=== PATIENT | male | born 1945 | race Caucasian/White ===

== ENCOUNTER 2018-11-13 08:22 | Day surgery (SDC) | payer MEDICARE ==
[2018-11-12 08:40] VITALS: BMI 39.4
[~2018-11-13 08:22] MED LIST: LACTATED RINGERS 1,000 ML IV SCH
[2018-11-13 08:50] VITALS: TEMP 98.1
[2018-11-13 08:54] LABS: Glucose,Whole Blood 129 mg/dL (75-99)
[2018-11-13] MEDS ORDERED: PROPOFOL 10 MG/ML 20 ML VIAL IV ONE (09:10)
[2018-11-13] MEDS ORDERED: LIDOCAINE 1% INJ 10MG/ML (20 ML MDV) ONE (09:10)
--- NOTE | 2018-11-13 09:43 | P.PCN ---
Date of Procedure: 11/13/18 Description of Procedure: BRIEF HISTORY: Pleasant 73-year-old female who presents for outpatient screening colonoscopy. The patient denies any change in bowel habits, abdominal pain, blood per rectum. Has had colonoscopies in the past with the last occurring 5 years ago. Denies any family history of colon cancer. PROCEDURE PERFORMED: Colonoscopy with polypectomy. PREOPERATIVE DIAGNOSIS: Screening for malignant neoplasm of the colon, last colonoscopy 5 years ago. ESTIMATED BLOOD LOSS: Minimal. IV sedation per Anesthesia. PROCEDURE: After informed consent was obtained, the patient, was brought into the endoscopy unit. IV sedation was administered by Anesthesia under continuous monitoring. Digital rectal examination was normal. Initially the Olympus CF-190 flexible video colonoscope was then inserted in the rectum, gradually advanced into the cecum without any difficulty. Careful examination was performed as the scope was gradually being withdrawn. Ileocecal valve and the appendiceal orifice were visualized and appeared normal. Prep was excellent. Mucosa of the cecum, ascending colon, transverse colon, descending colon, sigmoid colon, and rectum appeared normal. Mild scattered diverticulosis throughout the colon. Mild internal hemorrhoids. 5 mm sessile transverse colon polyp removed with cold snare polypectomy. Retroflexion was performed in the rectum and no lesions were seen. The patient tolerated the procedure well. IMPRESSION: Transverse colon polyp removed with cold snare. Pandiverticulosis. Mild internal hemorrhoids. RECOMMENDATIONS: Findings of this examination were discussed with the patient and his . Okay to resume high-fiber diet. Okay to resume medications. Recommend repeat colonoscopy in 5 years pending pathology from polypectomy.
[2018-11-13 09:52] VITALS: RESP 16
[2018-11-13 09:53] LABS: Glucose,Whole Blood 132 mg/dL (75-99)
[2018-11-13 10:10] VITALS: BP 151/75; PULSE 62
== END 2018-11-13 10:37 | disposition home or self-care (01) ==
LOC: ORWHC2ENDO 08:22
PROVIDERS: ATTEND Internal Medicine
DX: Z12.11 Encounter for screening for malignant neoplasm of colon (principal); D12.3 Benign neoplasm of transverse colon; K57.30 Diverticulosis of large intestine without perforation or abscess without bleeding; K64.8 Other hemorrhoids; I10 Essential (primary) hypertension; E78.5 Hyperlipidemia, unspecified; E11.9 Type 2 diabetes mellitus without complications; Z85.46 Personal history of malignant neoplasm of prostate; Z79.84 Long term (current) use of oral hypoglycemic drugs; Z79.82 Long term (current) use of aspirin; Z79.899 Other long term (current) drug therapy
CPT/HCPCS: 88305; 45385; J2001; J2704

== ENCOUNTER → 2019-11-02 | Outpatient (CLI) | payer MEDICARE ==
[~2019-11-02] MED LIST changes: +DOBUTamine DRIP for NUC MED 500 MG in DEXTROSE/WATER 1 250ML.BAG IV ONE; -LACTATED RINGERS 1,000 ML IV SCH
--- NOTE | 2019-11-02 13:39 | ECHOS ---
STRESS ECHOCARDIOGRAM LUMASON: Vial INDICATIONS: Syncope. MEDICATIONS: Metformin, Bisoprolol, Pravastatin, Candesartan, Novalog BASELINE HEART RATE: 74 BASELINE BLOOD PRESSURE: 154/82 MAXIMUM HEART RATE: 129 MAXIMUM BLOOD PRESSURE: 182/45 85% MPHR: 125 100% MPHR: 147 METS: MAXIMUM STAGE REACHED: TOTAL EXERCISE TIME: CLINICAL INFORMATION: Baseline EKG shows sinus rhythm, normal axis, normal intervals. Patient was given intravenous dobutamine over a period of 6 minutes as per protocol, did not have chest pain or diagnostic ST-segment depression. Baseline echo shows normal left ventricular size, wall motion, and systolic function. Post dobutamine infusion, there is normal hyperdynamic response of all segments of myocardium noted. Lumason was used in improve endocardial visualization. CONCLUSIONS: 1. Negative stress test by EKG criteria. 2. Negative contrast dobutamine echo. MMSEPIDEH / IJN: [id number] /
== END | disposition home or self-care (01) ==
LOC: RADNMMAIN 09:04
PROVIDERS: ATTEND Internal Medicine
DX: R55 Syncope and collapse (principal)
CPT/HCPCS: C8930; J1250; Q9950; 93351

== ENCOUNTER → 2019-11-23 | Outpatient (CLI) | payer MEDICARE | END | disposition home or self-care (01) | LOC: LABPAT 14:34 | PROVIDERS: ATTEND Orthopaedic Surgery | DX: Z01.812 Encounter for preprocedural laboratory examination (principal) | CPT/HCPCS: 87070 ==

== ENCOUNTER → 2019-12-04 | Outpatient (CLI) | payer MEDICARE ==
[2019-12-04 15:11] LABS: Basophils % (A) 1 %; Eosinophils # (A) 0.1 k/uL (0-0.7); Eosinophils % (A) 1 %; HCT 50.4 % (39.0-53.0); HGB 16.7 gm/dL (13.0-17.5); Lymphocytes # (A) 0.9 k/uL (1.0-4.8); Lymphocytes % (A) 10 %; MCH 30.7 pg (25.0-35.0); MCHC 33.1 g/dL (31.0-37.0); MCV 92.8 fL (80.0-100.0); Mean Platelet Volume 8.7; Monocytes # (A) 0.5 k/uL (0-1.0); Monocytes % (A) 6 %; Neutrophils # (A) 7.1 k/uL (1.3-7.7); Neutrophils % (A) 81 %; Platelet Count 230 k/uL (150-450); RBC 5.43 m/uL (4.30-5.90); RDW 13.6 % (11.5-15.5); WBC 8.8 k/uL (3.8-10.6)
[2019-12-04 15:13] LABS: INR 0.9 (<1.2); Prothrombin Time 9.9 sec (9.0-12.0)
== END | disposition home or self-care (01) ==
LOC: LABPAT 13:16
PROVIDERS: ATTEND Orthopaedic Surgery
DX: Z01.818 Encounter for other preprocedural examination (principal); M17.11 Unilateral primary osteoarthritis, right knee
CPT/HCPCS: 80051; 85025; 85610

== ENCOUNTER 2019-12-10 05:53 | Day surgery (SDC) | payer MEDICARE ==
[2019-12-04 09:07] VITALS: BMI 35.9
--- NOTE | 2019-12-09 15:56 | HP ---
HISTORY AND PHYSICAL DATE OF SURGERY: 12/10/2019 Monty Meier is a 74-year-old patient seen with progressive right knee pain. We discussed options for treatment. He elected to proceed with right total knee arthroplasty. Consent regarding the procedure was obtained. Medical clearance was provided by Dr. Munguia. PAST MEDICAL HISTORY: Hypertension, hyperlipidemia, insulin-dependent diabetes. PAST SURGICAL HISTORY: Cardiac catheterization, knee arthroscopy. DAILY MEDICATIONS: Bisoprolol/hydrochlorothiazide, metformin, pravastatin, NovoLog insulin. ALLERGIES: NONE. SOCIAL HISTORY: He denies current tobacco use. PHYSICAL EVALUATION OF RIGHT KNEE: His range of motion is -2/3 to 120. Mild effusion. Tenderness medial joint line. Positive medial Ashlyn's. Medial patellofemoral crepitus with range of motion. Pain with patellofemoral compression. Ligaments stable. Hip rotation without pain. Distal neurovascular exam is intact. RADIOGRAPHS: Radiographs of the right knee reveal severe osteoarthritic changes. IMPRESSION: 1. Right knee osteoarthritis. 2. Hypertension. 3. Hyperlipidemia. 4. Insulin-dependent diabetes. 5. Cardiovascular disease. PLAN: Right total knee arthroplasty. MMODL / IJN: [id number] /
[~2019-12-10 05:53] MED LIST changes: +ACETAMINOPHEN TAB 500 MG TAB PO ONE; +DEXAMETHASONE SOD PHOSPHATE 10 MG/ML 1 ML VIAL IV ONE; -DOBUTamine DRIP for NUC MED 500 MG in DEXTROSE/WATER 1 250ML.BAG IV ONE; +HYDROmorphone 0.5 MG/0.5 ML SYRINGE IVP PRN; +MELOXICAM 7.5 MG TAB PO ONE; +MIDAZOLAM 2 MG/2 ML VIAL IV PRN; +ONDANSETRON 4 MG/2 ML VIAL IVP ONE; +TRANEXAMIC ACID 1,000 MG in SODIUM CHLORIDE 0.9% 100 ML IVPB ONE
[2019-12-10] MEDS ORDERED: ROPIVACAINE 246.25 MG, EPINEPHrine 0.5 MG, KETOROLAC 30 MG, cloNIDine HCL/PF 80 MCG, WA... MISCELLANE ONE ×5 (06:00)
[2019-12-10] MEDS: LACTATED RINGERS 1,000 ML IV SCH ×3 (06:30→22:36)
[2019-12-10 06:31] LABS: Glucose,Whole Blood 173 mg/dL (75-99)
[2019-12-10] MEDS ORDERED: MIDAZOLAM 2 MG/2 ML VIAL IV ONE (06:48)
[2019-12-10] MEDS ORDERED: ROPIVACAINE 0.2%-NS ON-Q PUMP 1,090 MG, EMPTY PAIN BALL 1 EACH MISCELLANE PRN (07:19)
--- NOTE | 2019-12-10 07:19 | P.ANPRN ---
Procedure Note - Anesthesia - Nerve Block Performed Right Adductor Canal Infusion Time Out Performed: Yes Date of Procedure: 12/10/19 Procedure Start Time: 06:49 Procedure Stop Time: 07:00 Location of Patient: PreOp Indication: Acute Post-Operative Pain, Requested by Surgeon Sedation Type: Sedate with meaningful contact maintained Preparation: Sterile Prep, Sterile Dressing Position: Supine Catheter: Indwelling Needle Types: Pajunk Needle Gauge: 21 Ultrasound used to visualize needle placement: Yes Ultrasound used to observe medication spread: Yes Blood Aspirated: No Pain Paresthesia on Injection Noted: No Resistance on Injection: Normal Image Stored and Saved: Yes Events: Uneventful and Well Tolerated (ropi .5% 20 cc plus dexamethasone 4mg)
[2019-12-10] MEDS ORDERED: fentaNYL (PF) 50 MCG/ML 2 ML AMP ONE (07:20)
[2019-12-10] MEDS ORDERED: PROPOFOL 10 MG/ML 20 ML VIAL IV ONE (07:20)
[2019-12-10] MEDS ORDERED: TRANEXAMIC ACID 1,000 MG/10 ML VIAL ONE (07:20)
[2019-12-10] MEDS ORDERED: SODIUM CHLORIDE 0.9% 100 ML BAG ONE (07:20)
[2019-12-10] MEDS ORDERED: MIDAZOLAM 2 MG/2 ML VIAL ONE (07:20)
[2019-12-10] MEDS ORDERED: LACTATED RINGERS 1,000 ML IV ONE (08:08)
[2019-12-10] MEDS ORDERED: ONDANSETRON 4 MG/2 ML VIAL IVP PRN (08:57)
[2019-12-10] MEDS ORDERED: HYDROmorphone 0.5 MG/0.5 ML SYRINGE IVP PRN ×3 (08:57)
[2019-12-10] MEDS ORDERED: HYDROcodone/APAP 5-325MG 1 EACH TAB PO PRN ×2 (08:57)
[2019-12-10] MEDS ORDERED: NALOXONE 0.4 MG/ML 1 ML VIAL IV PRN (08:57)
--- NOTE | 2019-12-10 08:57 | P.OP ---
Date of Procedure: 12/10/19 Preoperative Diagnosis: Right knee osteoarthritis Postoperative Diagnosis: Right knee osteoarthritis Procedure(s) Performed: Right total knee arthroplasty Implants: 1. Depuy attune size 6 cruciate retaining cemented femur 2. Depuy attune size 6 fixed bearing cemented tibial baseplate 3. Depuy attune size 6 fixed bearing cruciate retaining 10 mm polyethylene tibial insert 4. Depuy attune 41 mm all polyethylene cemented patella Anesthesia: regional (Adductor canal catheter), local, spinal Surgeon: Brown Bro [employer] Technician #1: Moo Avelar Estimated Blood Loss (ml): 25 Pathology: other (Bone) Condition: stable Disposition: PACU Indications for Procedure: 74-year-old patient seen with symptomatic right knee osteoarthritis. After having treatment options discussed, he elected to proceed with total knee arthro plasty. Operative Findings: See description of procedure Description of Procedure: Patient was taken to the operative suite after having an adductor canal catheter placed by the department of anesthesia. Patient underwent a spinal anesthetic by the department of anesthesia. Patient was given preoperative IV intake antibiotics and TXA. A well-padded tourniquet was placed about the right lower extremity. The lower extremity was then prepped and draped in the normal sterile orthopedic fashion. The extremity was elevated, a tourniquet was in sufflated to 300. A standard anterior incision was made sharply through skin. Dissection was taken down through the subcutaneous soft tissues down to the extensor mechanism. A medial arthrotomy was performed, patella was everted and knee was flexed. There was advanced osteoarthritis noted. I introduced my distal intramedullary femoral drill. I then introduced the distal femoral cutting jig. Mauricio MULLIGAN secured the cutting jig with 2 pins. I held retractors in position while Mauricio MULLIGAN performed the distal femoral resection through the guide area we now removed her distal femoral cutting guide. We now placed our 4-in-1 femoral cutting block and positioned and it was secured with 2 pins by Mauricio MULLIGAN while I held the block in position. The distal femoral finishing was now completed. A proximal tibial cutting guide was positioned. I held the guide in the appropriate position with both hands well Mauricio MULLIGAN inserted stabilizing pins into the guide. Proximal tibial cut was made. We now placed a trial femoral component into position, along with an appropriate size tibial tray and insert. We now took the knee through range of motion and had full extension good flexion and good overall soft tissue balance noted. The patella was everted and stabilized with 2 towel clips held by Mauricio MULLIGAN while I performed a flush with patellar quad tendon utilizing a fresh sawblade. We templated the patella, appropriate drill holes were made. An appropriate trial patella was positioned, knee was taken through full range of motion with the patella tracking very nicely. The trial patella was removed. Drill holes were made through the femoral component. All trial components were removed after marking off the appropriate rotation of the tibia. Retractors were now positioned along the proximal tibia. An appropriate keel punch was made with the appropriate size tibial guide by myself on Mauricio MULLIGAN assisted by holding retractors. At this point appropriate size implants were chosen and opened. The joint was irrigated copiously with pulse lavage mechanical irrigation. The posterior capsule was infiltrated with local analgesic. The wound was irrigated with pulse lavage mechanical irrigation. We mixed antibiotic methylmethacrylate. We placed the knee into flexion. We placed multiple retractors assisted by Mauricio MULLIGAN to expose the proximal tibia. Once the methyl methacrylate was ready, the tibial component was cemented into place removing any excess methylmethacrylate form by both myself and Mauricio MULLIGAN. The femoral component was cemented into place removing the removing any excess methylmethacrylate performed by both myself and Mauricio MULLIGAN. We then inserted the appropriate size polyethylene tibial insert. We made sure that it was locked into position. We took the knee into full extension, and then back in a flexion making sure we had removed any excess methylmethacrylate. The patellar component was then cemented down and secured with clamp. Excess methylmethacrylate removed. We kept the knee in full extension, patellar clamp in position until methylmethacrylate had hardened. Once it had hardened the patellar clamp was removed. The knee was taken through full range of motion. The patella tracked nicely. There was good soft tissue balancing. The tourniquet was now released. Additional hemostasis was achieved via electrocautery. A second gram of TXA was given. The wound again was irrigated with pulse lavage mechanical irrigation. The superficial soft tissues were infiltrated local analgesic. The extensor mechanism was repaired with Vicryl. We checked the repair with range of motion and it was stable. The subcutaneous soft tissues were repaired with Vicryl in layers. The skin was approximated with pernio/Dermabond. Sterile dressings were applied followed by loose web roll and Madi bandage. The patient was transferred to a bed, and taken to recovery in stable and satisfactory condition. Mauricio MULLIGAN assisted with this complex procedure.
[2019-12-10 09:33] LABS: Glucose,Whole Blood 172 mg/dL (75-99)
--- NOTE | 2019-12-10 09:34 | XR ---
EXAMINATION TYPE: XR knee limited RT DATE OF EXAM: 12/10/2019 COMPARISON: NONE TECHNIQUE: Two views submitted HISTORY: Post op FINDINGS: There is a prosthetic knee in near anatomic alignment. There is soft tissue edema and emphysema. IMPRESSION: 1. Postoperative change. Appears in near-anatomic alignment
[2019-12-10] MEDS: MELOXICAM 7.5 MG TAB PO SCH (10:57)
--- NOTE | 2019-12-10 13:45 | P.CONS ---
History of Present Illness - Reason for Consult Consult date: 12/10/19 Medical management - Chief Complaint Right knee pain - History of Present Illness This is a 74-year-old male with past medical history noted below significant for severe osteoarthritis of the right knee that failed outpatient management was admitted to the hospital for elective total right knee arthroplasty. Patient is postoperative day #0. He tolerated the surgery well. No complications rep orted. I was asked to see him for medical management. Patient does not have any specific concerns or complaints. I clarified with him whether he takes aspirin at home on a daily basis and he said no he only takes it as needed. He denies any cardiac history. He recently had a cardiac stress test that was reported negative. Review of Systems Review of system: 14 points review of systems were obtained and were negative except to what were mentioned in the HPI. Past Medical History Past Medical History: Cancer, Diabetes Mellitus, Hyperlipidemia, Hypertension, Prostate Disorder Additional Past Medical History / Comment(s): PROSTATE CA W/ SEEDS, RADIATION TX. History of Any Multi-Drug Resistant Organisms: None Reported Past Surgical History: Appendectomy Additional Past Surgical History / Comment(s): COLONOSCOPIES. PROSTATE SEED IMPLANTS. Past Anesthesia/Blood Transfusion Reactions: No Reported Reaction Past Psychological History: No Psychological Hx Reported Smoking Status: Never smoker Past Alcohol Use History: None Reported Past Drug Use History: None Reported - Past Family History Brother(s) Family Medical History: Cancer Medications and Allergies Home Medications Medication Instructions Recorded Confirmed Type Aspirin 325 mg PO DAILY 11/12/18 12/04/19 History Bisoprolol-Hctz 2.5-6.25 mg [Ziac 1 each PO DAILY 11/12/18 12/04/19 History 2.5-6.25] Candesartan [Atacand] 16 mg PO DAILY 11/12/18 12/04/19 History Insulin NPH Hum/Reg Insulin Hm 50 unit SQ BID 11/12/18 12/04/19 History [Novolin 70-30 Flexpen] Pravastatin Sodium [Pravachol] 40 mg PO HS 11/12/18 12/04/19 History metFORMIN HCL [Glucophage] 1,000 mg PO BID 11/12/18 12/04/19 History Allergies Allergy/AdvReac Type Severity Reaction Status Date / Time No Known Allergies Allergy Verified 12/10/19 06:13 Physical Exam Vitals: Vital Signs Temp Pulse Pulse Resp BP BP Pulse Ox 12/10/19 12:15 159/76 12/10/19 12:00 62 166/75 95 12/10/19 11:45 55 L 152/82 95 12/10/19 11:30 54 L 156/84 97 12/10/19 11:15 58 L 142/78 12/10/19 11:00 56 L 133/70 96 12/10/19 10:45 54 L 151/80 96 12/10/19 10:28 97.5 F L 59 L 14 146/87 97 12/10/19 09:57 54 L 16 129/60 99 12/10/19 09:42 54 L 16 133/60 100 12/10/19 09:27 54 L 16 95/51 99 12/10/19 09:12 97 F L 59 L 16 108/60 99 12/10/19 07:01 60 16 157/81 97 12/10/19 06:19 96.8 F L 65 16 159/82 96 Intake and Output 12/09/19 12/10/19 12/10/19 22:59 06:59 14:59 Intake Total 300 1420 Output Total 25 Balance 300 1395 Intake: IV 300 1100 Oral 320 Output: Estimated Blood Loss 25 Other: Weight 113.9 kg 113.9 kg General: The patient is awake and alert, in no distress Eye: there is normal conjunctiva bilaterally. Neck: The neck is supple, there is no JVD. Cardiovascular: Normal S1-S2, no S3-S4, no murmurs. Respiratory: Lungs clear to auscultation bilaterally Gastrointestinal: Abdomen is soft, nontender Musculoskeletal: There is no pedal edema. Neurological:. Speech is normal. Skin: Skin is warm and dry Results Labs: Abnormal Lab Results - Last 24 Hours (Table) 12/10/19 12/10/19 Range/Units 06:30 09:31 POC Glucose (mg/dL) 173 H 172 H (75-99) mg/dL Assessment and Plan Assessment: 1. Type 2 diabetes, resume home dose of insulin units twice daily. Sliding scale insulin. Hold metformin. 2. Essential hypertension, blood pressure within acceptable range. Continue candesartan. Hold beta harika secondary to bradycardia postoperatively. Continue to monitor closely. Hold hydrochlorothiazide as well. If blood pressure improving may resume all home medications tomorrow 3. Hyperlipidemia, on Pravachol 4. Postoperative day #0 status post total right knee arthroplasty. Postoperative care and pain control per orthopedic protocol. DVT prophylaxis currently on Lovenox. Today, I reviewed his medication list. I would order CBC and BMP for the morning. I will continue to follow up on the patient closely with you. Thank you very much for the consultation.
[2019-12-10] MEDS: INSULIN ASPART (NovoLOG) 100 UNIT/ML VIAL SQ SCH ×2 (17:37→22:34)
[2019-12-10] MEDS: INSULN ASP PRT/INSULIN ASPART 100 UNIT/ML 10 ML VIAL SQ SCH (17:40)
[2019-12-10 17:43] LABS: Glucose,Whole Blood 351 mg/dL (75-99)
[2019-12-10] MEDS ORDERED: PRAVASTATIN SODIUM 40 MG TAB PO SCH (21:00)
[2019-12-10] MEDS ORDERED: SENNOSIDES-DOCUSATE SODIUM 1 EACH TAB PO SCH (21:00)
[2019-12-10 22:16] LABS: Glucose,Whole Blood 248 mg/dL (75-99)
[2019-12-10] MEDS: ENOXAPARIN 30 MG/0.3 ML SYRINGE SQ SCH (22:35)
[2019-12-11] MEDS: LACTATED RINGERS 1,000 ML IV SCH ×2 (04:50→08:08)
[2019-12-11 06:57] LABS: Glucose,Whole Blood 132 mg/dL (75-99)
--- NOTE | 2019-12-11 07:06 | P.PN ---
Progress Note - Text 12/11/19 74-year-old male status post total knee replacement by Dr. Avilez. Patient seen and evaluated this morning patient has an On-Q pump for postop pain control with the solution running at 8 mL an hour, with a VAS of 3. Patient doing well instructed to keep the rate at 8 mL an hour.
[2019-12-11 07:31] LABS: Basophils % (A) 0 %; Eosinophils % (A) 0 %; Lymphocytes % (A) 7 %; MCH 30.4 pg (25.0-35.0); MCHC 32.6 g/dL (31.0-37.0); MCV 93.3 fL (80.0-100.0); Mean Platelet Volume 8.4; Monocytes # (A) 1.2 k/uL (0-1.0); Monocytes % (A) 8 %; Neutrophils # (A) 12.8 k/uL (1.3-7.7); Neutrophils % (A) 84 %; Platelet Count 206 k/uL (150-450); RBC 4.61 m/uL (4.30-5.90); RDW 13.3 % (11.5-15.5); WBC 15.3 k/uL (3.8-10.6)
[2019-12-11] MEDS: INSULIN ASPART (NovoLOG) 100 UNIT/ML VIAL SQ SCH ×2 (07:52→11:50)
[2019-12-11] MEDS: MELOXICAM 7.5 MG TAB PO SCH (08:01)
[2019-12-11] MEDS: INSULN ASP PRT/INSULIN ASPART 100 UNIT/ML 10 ML VIAL SQ SCH (08:01)
[2019-12-11] MEDS: ENOXAPARIN 30 MG/0.3 ML SYRINGE SQ SCH (08:01)
[2019-12-11 08:56] VITALS: BP 143/71; PULSE 62; RESP 17; TEMP 98.3
[2019-12-11] MEDS ORDERED: ASPIRIN 325 MG TAB PO SCH (09:00)
[2019-12-11] MEDS ORDERED: LOSARTAN 50 MG TAB PO SCH (09:00)
[2019-12-11] MEDS ORDERED: BISOPROLOL-HCTZ 2.5-6.25 MG 1 EACH TAB PO SCH (10:30)
[2019-12-11 10:41] LABS: African American GFR (CKD) 69.1 (60.0-200.0); Anion Gap 7.2 mmol/L (4.00-12.00); BUN/Creat Ratio 24.17 Ratio (12.00-20.00); Calcium 8.8 mg/dL (8.7-10.3); Carbon Dioxide 28.8 mmol/L (21.6-31.8); Non-African American GFR(CKD) 59.6 (60.0-200.0); Potassium 4.1 mmol/L (3.5-5.5)
[2019-12-11 11:51] LABS: Glucose,Whole Blood 97 mg/dL (75-99)
--- NOTE | 2019-12-11 12:15 | P.PN ---
Subjective Progress Note Date: 12/11/19 Principal diagnosis: Status post right total knee arthroplasty Patient is examined today at bedside, resting comfortably. He's done very well with physical therapy. His pain is well-controlled. He denies any chest pain, shortness of breath, fever or chills. Objective - Vital Signs Vital signs: Vital Signs Temp 98.3 F 12/11/19 08:00 Pulse 62 12/11/19 08:00 Resp 17 12/11/19 08:00 BP 143/71 12/11/19 08:00 Pulse Ox 96 12/11/19 08:00 Intake & Output 12/10/19 12/11/19 12/11/19 18:59 06:59 18:59 Intake Total 1420 960 Output Total 625 600 Balance 795 360 Weight 113.9 kg Intake: IV 1100 Intake, IV Titration 960 Amount Lactated Ringers 1,000 ml 860 @ 80 mls/hr IV .[id number] ALVARO Rx#:[id number] ceFAZolin 2 gm In Sodium 100 Chloride 0.9% 50 ml @ 100 mls/hr IVPB Q8HR ALVARO Rx# :[id number] Oral 320 Output: Urine 600 600 Estimated Blood Loss 25 Other: Voiding Method Toilet # Voids 1 1 - Exam Right lower extremity: Incision is clean, dry, and intact. The foam dressing is in good condition. There is minimal soft tissue swelling and ecchymosis surrounding the medial and lateral aspects of the incision. Calf is soft, no tenderness with palpation. Plantar flexion, dorsiflexion, EHL, FHL are intact. Sensory exam to light touch throughout the extremity is intact, dorsal pedis pulses 2+. - Labs CBC & Chem 7: 12/11/19 06:58 12/11/19 06:59 Labs: Abnormal Lab Results - Last 24 Hours (Table) 12/10/19 12/10/19 12/11/19 Range/Units 17:36 22:14 06:53 WBC (3.8-10.6) k/uL Neutrophils # (1.3-7.7) k/uL Monocytes # (0-1.0) k/uL BUN (9.0-27.0) mg/dL Est GFR (CKD-EPI)NonAf (60.0-200.0) BUN/Creatinine Ratio (12.00-20.00) Ratio Glucose (70-110) mg/dL POC Glucose (mg/dL) 351 H 248 H 132 H (75-99) mg/dL 12/11/19 12/11/19 Range/Units 06:58 06:59 WBC 15.3 H (3.8-10.6) k/uL Neutrophils # 12.8 H (1.3-7.7) k/uL Monocytes # 1.2 H (0-1.0) k/uL BUN 29.0 H (9.0-27.0) mg/dL Est GFR (CKD-EPI)NonAf 59.6 L (60.0-200.0) BUN/Creatinine Ratio 24.17 H (12.00-20.00) Ratio Glucose 129 H (70-110) mg/dL POC Glucose (mg/dL) (75-99) mg/dL Assessment and Plan Assessment: Status post right total knee arthroplasty Plan: Pain control, plan for discharge home on oral medication GI and DVT prophylaxis, aspirin 325 mg daily Wound care instructions discussed Home physical therapy and nursing after discharge Icing and elevating techniques discussed Medical recommendations Plan for discharge home today Time with Patient: Less than 30
--- NOTE | 2019-12-11 12:18 | P.DS ---
Providers Date of admission: 12/10/2019 Expected date of discharge: 12/11/19 Attending physician: Brown Bro Consults: 12/10/19 08:57 Consult Physician Routine Consulting Provider: Reji Munguia Reason/Comments: Medical management Do you want consulting provider notified?: Yes Primary care physician: Reji Munguia Hospital Course: Date of admission: 12/10/2019 Date of discharge: 12/11/2019 Admission diagnosis: Status post right total knee arthroplasty Discharge diagnosis: Same Attending physician: Dr. Bro Surgical procedures: Right total knee arthroplasty Brief history: Patient is a 74-year-old male with a history of progressive primary right knee osteoarthritis. At this point patient has failed conservative treatment measures and has opted to proceed with a elective right total knee arthroplasty. Hospital course: Details of patient's surgery can be found in operative report. Patient tolerated the procedure well and was subsequently transported to orthopedic floor. Patient's orthopeidc and medical care was provided daily. Patient had daily laboratory tests performed for evaluation of overall blood counts. Patient had daily physical therapy to include strengthening range of motion as well as education with walker ambulation. Patient was treated with Lovenox for their postoperative DVT prophylaxis during their inpatient stay. Patient was noted to have a relatively uneventful postoperative course. Patient reported satisfactory pain control with oral pain medications by postoperative day 0. Patient showed satisfactory progress with physical therapy. Patient moved steadily through the program and had no difficulty meeting the goals by postoperative day 1. Given patient's otherwise satisfactory course and having met physical therapy goals, plan is to discharge patient home on postoperative day 1. Discharge condition/disposition: Patient will be discharged home in stable condition. Discharge medications: Instructions are given on resumption of patient's normal daily medications per primary care recommendation, in addition patient will be prescribed Fenelton 5 mg/325 mg, Colace 100 mg, Aspirin 81mg. Discharge instructions: 1. Wound care and infection precautions, keep incision dry and covered while showering, no lotions, creams, moisturizers. No soaking, tubs, pools, hottubs. Do not scrub over the incision. 2. Weight-bear as tolerated with walker / cane until follow-up. 3. Ice and elevate when necessary. Do not exceed 20 minutes per hour with ice pack. 4. Utilize compression sleeve until seen at first follow up appointment. 5. Visiting nursing care. 6. Home physical therapy including home CPM. 7. Pain meds and anticoagulants per prescription. 8. Pain medication has potential to cause constipation. Increase oral fluid and fiber intake. Contact primary care provider if you have not had a bowel movement within 48 hours after discharge 9. No anti-inflammatory medication until discussed at first post operative visit, this including Motrin, Aleve, Mobic, Diclofenac. 10. Follow up in office at 2 weeks postop with Mauricio Avelar PA-C 11. Follow up with your primary care doctor 7-10 days after discharge. 12. Contact [facility] with any questions, . Procedures: Right total knee arthroplasty Patient Condition at Discharge: Good Plan - Discharge Summary Discharge Rx Participant: No New Discharge Prescriptions: New Aspirin [Adult Low Dose Aspirin EC] 81 mg PO BID #60 tablet.dr Simon [Colace] 100 mg PO DAILY #30 capsule Hydrocodone/Acetaminophen [Fenelton 5-325] 1 - 2 each PO Q6HR PRN #56 tab PRN Reason: Pain Continue Insulin NPH Hum/Reg Insulin Hm [Novolin 70-30 Flexpen] 50 unit SQ BID metFORMIN HCL [Glucophage] 1,000 mg PO BID Pravastatin Sodium [Pravachol] 40 mg PO HS Candesartan [Atacand] 16 mg PO DAILY Bisoprolol-Hctz 2.5-6.25 mg [Ziac 2.5-6.25 MG] 1 each PO DAILY No Action Aspirin 325 mg PO DAILY Discharge Medication List Aspirin 325 mg PO DAILY 11/12/18 [History] Bisoprolol-Hctz 2.5-6.25 mg [Ziac 2.5-6.25 MG] 1 each PO DAILY 11/12/18 [History] Candesartan [Atacand] 16 mg PO DAILY 11/12/18 [History] Insulin NPH Hum/Reg Insulin Hm [Novolin 70-30 Flexpen] 50 unit SQ BID 11/12/18 [History] Pravastatin Sodium [Pravachol] 40 mg PO HS 11/12/18 [History] metFORMIN HCL [Glucophage] 1,000 mg PO BID 11/12/18 [History] Aspirin [Adult Low Dose Aspirin EC] 81 mg PO BID #60 tablet. 12/11/19 [Rx] Alfred [Colace] 100 mg PO DAILY #30 capsule 12/11/19 [Rx] Hydrocodone/Acetaminophen [Fenelton 5-325] 1 - 2 each PO Q6HR PRN #56 tab 12/11/19 [Rx] Follow up Appointment(s)/Referral(s): [facility],Equipment [NON-STAFF] - As Needed (Continuous Passive Motion knee machine) [facility], [NON-STAFF] - As Needed Moo Avelar, PAC [PHYSICIAN FREE LANCE MODEL] - 2 Weeks Patient Instructions/Handouts: Knee Replacement (DC) Activity/Diet/Wound Care/Special Instructions: Orthopedic Discharge Instructions: 1. Wound care and infection precautions, keep incision dry and covered while showering, no lotions, creams, moisturizers. No soaking, pools, hot tubs. Do not scrub over incision. Okay to remove foam bandage on 12/20/2019 2. Weight-bear as tolerated with walker / cane until follow-up. 3. Ice and elevate when necessary. Do not exceed 20 minutes per hour with ice pack. 4. Utilize compression sleeve until seen at first follow up appointment. 5. Pain meds and anticoagulants per prescription. 6. Pain medication has potential to cause constipation. Increase oral fluid and fiber intake. Contact primary care provider if you have not had a bowel movement within 48 hours after discharge. 7. No anti-inflammatory medication until discussed at first post operative visit, this including Motrin, Aleve, Mobic, Diclofenac. 8. Follow up in office at 2 weeks postop with Mauricio Avelar PA-C 9. Follow up with your primary care doctor 7-10 days after discharge. 10. Contact [facility] with any questions, . Discharge Disposition: HOME WITH HOME HEALTH SERVICES
--- NOTE | 2019-12-11 18:20 | P.PN ---
Subjective Progress Note Date: 12/11/19 (amy charting seen at 0930) Principal diagnosis: knee pain Patient is a 74-year-old male with diabetes, hypertension, and osteoarthritis who presented for elective right total knee arthroplasty. Patient seen and examined at bedside. He denies any chest pain, shortness breath, nausea, vomiting. Pain in his knee is well controlled. He has already worked physical therapy. We discussed that sugars can vary widely postoperatively. I've asked him to check his blood sugars closely over the next 2-5 days to make sure his insulin regimen is correct. General: non toxic, no distress, appears at stated age Derm: warm, dry Head: atraumatic, normocephalic, symmetric Eyes: EOMI, no lid lag, anicteric sclera Mouth: no lip lesion, mucus membranes moist Cardiovascular: S1S2 reg, no murmur, positive posterior tibial pulse bilateral, Lungs: CTA bilateral, no rhonchi, no rales , no accessory muscle use Abdominal: soft, nontender to palpation, no guarding, no appreciable organomegaly Ext: Dressing in place over right knee no gross muscle atrophy, no edema, no contractures Neuro: CN II-XI grossly intact, no focal neuro deficits Psych: Alert, oriented, appropriate affect 74-year-old male status post right total knee arthroplasty Diabetes mellitus type 2 insulin-dependent -Continue with 70/30 and metformin -Check blood sugars twice daily and the postoperative. Hypertension -Continue candesartan, bisoprolol hydrochlorothiazide -Follow blood pressures at home Morbid obesity with BMI 36.3 -Outpatient structured weight loss Leukocytosis, reactive Patient is medically optimized for discharge at the discretion of orthopedic surgery. Objective - Vital Signs Vital signs: Vital Signs Temp 98.3 F 12/11/19 08:00 Pulse 62 12/11/19 08:00 Resp 17 12/11/19 08:00 BP 143/71 12/11/19 08:00 Pulse Ox 96 12/11/19 08:00 Intake & Output 12/10/19 12/11/19 12/11/19 18:59 06:59 18:59 Intake Total 1420 960 Output Total 625 600 Balance 795 360 Weight 113.9 kg Intake: IV 1100 Intake, IV Titration 960 Amount Lactated Ringers 1,000 ml 860 @ 80 mls/hr IV .[id number] ALVARO Rx#:[id number] ceFAZolin 2 gm In Sodium 100 Chloride 0.9% 50 ml @ 100 mls/hr IVPB Q8HR ALVARO Rx# :[id number] Oral 320 Output: Urine 600 600 Estimated Blood Loss 25 Other: Voiding Method Toilet # Voids 1 1 - Labs CBC & Chem 7: 12/11/19 06:58 12/11/19 06:59 Labs: Abnormal Lab Results - Last 24 Hours (Table) 12/10/19 12/11/19 12/11/19 Range/Units 22:14 06:53 06:58 WBC 15.3 H (3.8-10.6) k/uL Neutrophils # 12.8 H (1.3-7.7) k/uL Monocytes # 1.2 H (0-1.0) k/uL BUN (9.0-27.0) mg/dL Est GFR (CKD-EPI)NonAf (60.0-200.0) BUN/Creatinine Ratio (12.00-20.00) Ratio Glucose (70-110) mg/dL POC Glucose (mg/dL) 248 H 132 H (75-99) mg/dL 12/11/19 Range/Units 06:59 WBC (3.8-10.6) k/uL Neutrophils # (1.3-7.7) k/uL Monocytes # (0-1.0) k/uL BUN 29.0 H (9.0-27.0) mg/dL Est GFR (CKD-EPI)NonAf 59.6 L (60.0-200.0) BUN/Creatinine Ratio 24.17 H (12.00-20.00) Ratio Glucose 129 H (70-110) mg/dL POC Glucose (mg/dL) (75-99) mg/dL
== END 2019-12-11 13:40 | disposition home health service (06) ==
LOC: OR 05:53 → 4SSUR 08:47 → OR 12-11 13:40
PROVIDERS: ATTEND Orthopaedic Surgery
DX: M17.11 Unilateral primary osteoarthritis, right knee (principal); I10 Essential (primary) hypertension; E78.5 Hyperlipidemia, unspecified; E11.9 Type 2 diabetes mellitus without complications; D72.828 Other elevated white blood cell count; I25.10 Atherosclerotic heart disease of native coronary artery without angina pectoris; Z98.890 Other specified postprocedural states; Z85.46 Personal history of malignant neoplasm of prostate; Z92.3 Personal history of irradiation; Z90.49 Acquired absence of other specified parts of digestive tract; Z80.9 Family history of malignant neoplasm, unspecified; Z79.4 Long term (current) use of insulin; Z79.899 Other long term (current) drug therapy; E66.01 Morbid (severe) obesity due to excess calories; Z68.36 Body mass index [BMI] 36.0-36.9, adult; Z79.01 Long term (current) use of anticoagulants
CPT/HCPCS: 97116; 97110 ×2; 97161; 64448; 76942; 80048; 85025; 73560; 27447; C1776; C1713; J2250; J0171; J1100; J0690; J2405; J3010; J1885; J1650 ×2; J2795 ×2; J2704; J0735; 88305; 88311

== ENCOUNTER → 2022-08-28 | Outpatient (CLI) | payer MEDICARE ==
--- NOTE | 2022-08-28 16:43 | US ---
EXAMINATION TYPE: US kidneys/renal and bladder DATE OF EXAM: 08/28/2022 COMPARISON: NONE CLINICAL INDICATION: Male, 77 years old with history of N28.9 RENAL INSUFFICIENCY; EXAM MEASUREMENTS: Right Kidney: 11.1 x 5.9 x 5.6 cm Left Kidney: 10.8 x 6.3 x 5.7 cm Right Kidney: No hydronephrosis or masses seen Left Kidney: Hypoechoic exophytic lesion measuring 1.4 x 1.3 x 1.2 cm. Bladder: wnl Bilateral Jets seen: Yes There is no evidence for hydronephrosis at this point in time. No nephrolithiasis is seen. No joe s are identified. The urinary bladder is anechoic. Bilateral ureteral jets are seen. IMPRESSION: 1. No obstructive uropathy. 2. Left renal cyst.
== END | disposition home or self-care (01) ==
LOC: RADUSWWP 13:33
PROVIDERS: ATTEND Internal Medicine
DX: N28.1 Cyst of kidney, acquired (principal)
CPT/HCPCS: 76770

== ENCOUNTER → 2023-08-30 | Outpatient (CLI) | payer MEDICARE ==
--- NOTE | 2023-08-30 17:20 | CA ---
Transthoracic Echo Report Name: Monty Meier Age: 78 Gender: M : 1945 Exam Date: 08/30/2023 12:52 Exam Location: [facility] Ht (in): 71 Wt (lb): 230 Ordering Physician: Demario Nayak DO Attending/Referring Phys: Demario Nayak DO Town Administrator Sola Gatica RDCS Procedure CPT: Indications: R01.1 CARDIAC MURMUR, UNSPECIFIED Cardiac Hx: Technical Quality: Technically difficult study Contrast 1: Definity Total Dose (mL): 2 Contrast 2: Total Dose (mL): MEASUREMENTS (Male / Female) Normal Values 2D ECHO LV Diastolic Diameter PLAX 5.2 cm 4.2 - 5.9 / 3.9 - 5.3 cm LV Systolic Diameter PLAX 3.7 cm IVS Diastolic Thickness 1.1 cm 0.6 - 1.0 / 0.6 - 0.9 cm LVPW Diastolic Thickness 1.1 cm 0.6 - 1.0 / 0.6 - 0.9 cm LV Relative Wall Thickness 0.4 RV Internal Dim ED PLAX 3.6 cm LVOT Diameter 2.0 cm LV Diastolic Volume MOD BP 143.9 cm??? 67 - 155 / 56 - 104 cm??? LV Systolic Volume MOD BP 44.8 cm??? 22 - 58 / 19 - 49 cm??? LV Ejection Fraction MOD BP 68.9 % >= 55 % LV Cardiac Index MOD BP 2609.0 cm???/min???m??? LV Diastolic Volume MOD 4C 145.2 cm??? LV Systolic Volume MOD 4C 40.1 cm??? LV Ejection Fraction MOD 4C 72.4 % LV Cardiac Index MOD 4C 2767.2 cm???/min???m??? LV Diastolic Length 4C 8.7 cm LV Systolic Length 4C 6.5 cm LV Diastolic Volume MOD 2C 126.2 cm??? LV Systolic Volume MOD 2C 50.5 cm??? LV Ejection Fraction MOD 2C 60.0 % LV Cardiac Index MOD 2C 1992.3 cm???/min???m??? LV Diastolic Length 2C 7.6 cm LV Systolic Length 2C 6.5 cm LA Volume 81.3 cm??? 18 - 58 / 22 - 52 cm??? LA Volume Index 35.1 cm???/m??? 16 - 28 cm???/m??? Ascending Aorta Diameter 3.2 cm DOPPLER AV Peak Velocity 294.8 cm/s AV Peak Gradient 34.8 mmHg AV Mean Velocity 201.9 cm/s AV Mean Gradient 18.3 mmHg AV Velocity Time Integral 66.6 cm LVOT Peak Velocity 96.4 cm/s LVOT Peak Gradient 3.7 mmHg LVOT Velocity Time Integral 21.8 cm LVOT Stroke Volume 71.0 cm??? LVOT Stroke Volume Index 31.7 ml/m??? LVOT Cardiac Index 1869.5 cm???/min???m??? AV Area Cont Eq vti 1.1 cm??? AV Area Cont Eq pk 1.1 cm??? MV Area PHT 1.9 cm??? Mitral E Point Velocity 52.2 cm/s Mitral A Point Velocity 92.5 cm/s Mitral E to A Ratio 0.6 MV Deceleration Time 396.1 ms PV Peak Velocity 112.4 cm/s PV Peak Gradient 5.1 mmHg FINDINGS Left Ventricle Left ventricular ejection fraction is estimated at 60 %. Left ventricular cavity size normal. Left ventricular wall thickness at upper limits of normal. No obvious regional wall motion abnormalities. Right Ventricle Normal right ventricular size and function. Unable to estimate the right ventricular systolic pressure. Right Atrium Normal right atrial size. Left Atrium Moderately increased left atrial volume. Mildly increased left atrial area. Mitral Valve Structurally normal mitral valve. No evidence for mitral valve prolapse. No mitral stenosis. Mild mitral regurgitation. Aortic Valve Trileaflet aortic valve. Aortic valve sclerosis. Mild aortic stenosis. Trace aortic regurgitation. Tricuspid Valve Structurally normal tricuspid valve. No tricuspid stenosis. Trace tricuspid regurgitation. Pulmonic Valve Structurally normal pulmonic valve. No pulmonic stenosis. Trace pulmonic regurgitation. Pericardium No pericardial effusion. Aorta Aortic root and proximal ascending aorta not well visualized. CONCLUSIONS Normal LV function Mild aortic stenosis Previewed by: Dr. Julien Fernandes MD (Electronically Signed) Final Date: 30 August 2023 17:19
== END | disposition home or self-care (01) ==
LOC: RADECHMAIN 12:47
PROVIDERS: ATTEND Internal Medicine
DX: I35.0 Nonrheumatic aortic (valve) stenosis (principal); R01.1 Cardiac murmur, unspecified
CPT/HCPCS: C8929; Q9957; 93306